=== PATIENT | male | born 1980 | race Caucasian/White ===

== ENCOUNTER 2022-10-26 22:28 | Emergency (ER) | payer MEDICAID, SELFPAY ==
[2022-10-26 22:42] VITALS: BP 137/56; PULSE 78; RESP 18; TEMP 36.8; O2SAT 97; BMI 41.3
--- NOTE | 2022-10-26 22:48 | [facility].EDGENADL ---
Discharge Plan Disposition Patient Disposition: Home, Self-Care Prescriptions Prescriptions: New ibuprofen 800 mg tablet 800 mg PO TID PRN (Reason: pain) 7 Days Qty: 20 0RF cyclobenzaprine 5 mg tablet 5 mg PO TID PRN (Reason: muscle spasm) 5 Days Qty: 15 0RF Referrals Follow up/Referrals: Provider,Referral, [Primary Care Provider] - See instructions Activity Restrictions/Add. Instructions Additional Instructions/Restrictions: You have no evidence of any central nervous system abnormalities or spinal abnormalities today. Your lumbosacral strain is consistent with a musculoskeletal abnormality. Please return with any of the symptoms we discussed including urinary or bowel incontinence urinary retention lower extremity paralysis numbness between your legs high fever or other concerns. Clinical Impressions Clinical Impression: Lumbosacral strain Discharge ED Provider: [facility] HPI General Stated complaint: severe back pain Time Seen by Provider: 10/26/22 22:47 History of Present Illness HPI narrative: Patient is a 42-year-old male here with right paraspinal lower back pain. Patient states that he had a fracture of his tailbone in 2019 after significant injury. Had complete resolution since that time and attributes some of his symptoms today to that but did not have any chronicity to this up until recently. States he has not done anything excessively exertional but does some farm work and is more obese and deconditioned he has been in the past. Pain is located on the right paraspinal aspect of the lower back no radiation no hematuria no midline back pain. Patient denies any lower extremity weakness, saddle anesthesia, urinary or bowel incontinence, urinary retention, fever, history of cancer, or history of injection drug use. No radiation of this pain as well. Related Data Previous Rx's Medication Instructions Recorded cyclobenzaprine 5 mg tablet 5 mg PO TID PRN muscle spasm 5 10/26/22 days #15 tabs ibuprofen 800 mg tablet 800 mg PO TID PRN pain 7 days #20 10/26/22 tabs Allergies Allergy/AdvReac Type Severity Reaction Status Date / Time No Known Allergies Allergy Verified 10/26/22 22:41 [facility] Disclaimer: The information contained in this section may have been updated after the patient was seen, as this information can be updated by other users. Social History Smoking Status: Unknown if ever smoked alcohol intake: never current occupational status: other Travel in the last 8 weeks: None ROS Obtained: Yes All systems reviewed & no additional complaints except as documented Physical Exam General General appearance: alert Respiratory Respiratory exam: Present normal lung sounds bilaterally Cardiovascular Cardiovascular exam: Present regular rate; Absent tachycardia Back Exam Back exam: Present other (Tender to palpation as indicated on the image, lower extremity strength is normal no saddle anesthesia no midline back pain tenderness or step-offs or deformity) Back 1 view image: 1. Neurological Exam Neurological exam: Present alert and oriented X3 Medical Decision Making Donald Inquiry Pt receiving controlled substance: No Orders (Tests/Meds): ED MEDICATIONS Generic Name Dose Route Start Last Admin Trade Name Freq PRN Reason Stop Dose Admin Ketorolac Tromethamine 60 mg 10/26/22 22:44 Ketorolac 60mg/2ml Vial IM 10/26/22 22:45 ONCE ONE Medical Decision Narrative: 42-year-old male here with nontraumatic back pain no red flags from historical standpoint exam is benign. Does not consistent with a kidney stone AAA or any other cardiovascular emergency. Is not consistent with spinal pathology there is no midline back pain no neurologic signs or symptoms consistent with cauda equina syndrome or any [employer] compression. Discussed with him return precautions. We will treat this as a musculoskeletal strain in the lumbosacral re
[2022-10-26 22:54] VITALS: BP 137/56; PULSE 78; RESP 18; TEMP 36.7
== END 2022-10-26 23:03 | disposition home or self-care (01) ==
PROVIDERS: Emergency Provider Student in an Organized Health Care Education/Training Program
DX: S39.012A Strain of muscle, fascia and tendon of lower back, initial encounter (principal); X58.XXXA Exposure to other specified factors, initial encounter
CPT/HCPCS: 96372; 99283